=== PATIENT | male | born 1965 | race Caucasian/White ===

== ENCOUNTER → 2022-06-24 08:55 | Outpatient (BNVA) | payer OTHER, SELFPAY | PROVIDERS: PCP Internal Medicine; Visit Provider Anesthesiology | DX: Z13.89 Encounter for screening for other disorder (principal) ==

== ENCOUNTER 2022-09-11 07:35 | Day surgery (SDC) | payer MEDICARE, SELFPAY ==
--- NOTE | 2022-09-10 09:37 | P.CONAN_ITS ---
Documented by User: Awilda Goldman NP 09/10/22 09:39 HPI - Anesthesia Eval Consult details Narrative: 57yo M for Spinal Cord Stimulation Trial Chronic opioids - hydromorphone, fentanyl patch PMFSH Active Problems Active Problems: All Active Problems (Updated 06/24/22 @ 09:43 by Freddy Shanks MD) Obstructive sleep apnea (Acute) Morbid obesity (Acute) Chronic pain syndrome (Acute) Postlaminectomy syndrome of lumbosacral region (Acute) Postlaminectomy syndrome of lumbar region (Acute) Past Medical History Medical History (Updated 09/10/22 @ 09:38 by Awilda Goldman NP) Morbid obesity Obstructive sleep apnea Social History Social History Patient Tobacco Use Status: Former Tobacco user Quit Date: 2016 Use of substances other than those prescribed or required for medical reasons: Yes Substance Use Type Other:: gummies Substance Use Frequency: Daily Are you DNR?: No Advance Directives: No Advance Directives Information Provided: Yes Meds Allergies Allergy/AdvReac Type Severity Reaction Status Date / Time amoxicillin Allergy Unknown Verified 06/24/22 09:26 azithromycin Allergy Unknown Verified 06/24/22 09:26 gabapentin Allergy Unknown Verified 06/24/22 09:26 Latex, Natural Rubber Allergy Unknown Verified 06/24/22 09:26 Home Medications Medication Instructions Recorded Confirmed Last Taken Type albuterol sulfate 90 mcg/actuation 0 mcg inhalation 06/24/22 Unknown History aerosol inhaler allopurinol 100 mg tablet 100 mg PO DAILY 06/24/22 Unknown History baclofen 10 mg tablet 10 mg PO TID 06/24/22 Unknown History clonazepam 1 mg tablet 1 mg PO BID 06/24/22 Unknown History clonidine HCl 0.2 mg tablet 0.2 mg PO BEDTIME 06/24/22 Unknown History divalproex 500 mg tablet,delayed 1,000 mg PO BID 06/24/22 Unknown History release doxazosin 4 mg tablet 4 mg PO DAILY 06/24/22 Unknown History econazole 1 % topical cream 1 appl topical BID 06/24/22 Unknown History fentanyl 75 mcg/hr transdermal 1 patch topical Q3D 06/24/22 Unknown History patch fluticasone propionate 50 spray intranasal 06/24/22 Unknown History mcg/actuation nasal spray,suspension hydromorphone 2 mg tablet mg PO 06/24/22 Unknown History meloxicam 15 mg tablet 15 mg PO DAILY 06/24/22 Unknown History montelukast 10 mg tablet 10 mg PO DAILY 06/24/22 Unknown History nortriptyline 50 mg capsule 50 mg PO BEDTIME 06/24/22 Unknown History omeprazole 40 mg capsule,delayed 40 mg PO BID 06/24/22 Unknown History release risperidone 2 mg tablet 2 mg PO BEDTIME 06/24/22 Unknown History spironolactone 50 mg tablet 50 mg PO DAILY 06/24/22 Unknown History torsemide 20 mg tablet 20 mg PO BID 06/24/22 Unknown History trazodone 150 mg tablet mg PO 06/24/22 Unknown History Exam Exam Date and Time: September 10, 2022 09 Documented by User: Melissa Whyte MD 09/11/22 13:33 [facility] Past Medical History Medical History (Updated 09/10/22 @ 09:38 by Awilda Goldman NP) Morbid obesity Obstructive sleep apnea Family History Family history of problems with anesthesia: No Surgical History History of Problems with Anesthesia: No Social History Social History Patient Tobacco Use Status: Former Tobacco user Quit Date: 2016 Use of substances other than those prescribed or required for medical reasons: Yes Substance Use Type Other:: gummies Substance Use Frequency: Daily Are you DNR?: No Advance Directives: No Advance Directives Information Provided: Yes Meds Allergies Allergy/AdvReac Type Severity Reaction Status Date / Time amoxicillin Allergy Unknown Verified 06/24/22 09:26 azithromycin Allergy Unknown Verified 06/24/22 09:26 gabapentin Allergy Unknown Verified 06/24/22 09:26 Latex, Natural Rubber Allergy Unknown Verified 06/24/22 09:26 Home Medications Medication Instructions Recorded Confirmed Last Taken Type albuterol sulfate 90 mcg/actuation 0 mcg inhalation 06/24/22 Unknown History aerosol inhaler allopurinol 100 mg tablet 100 mg PO DAILY 06/24/22 Unknown History baclofen 10 mg tablet 10 mg PO TID 06/24/22 Unknown History clonazepam 1 mg tablet 1 mg PO BID 06/24/22 Unknown History clonidine HCl 0.2 mg tablet 0.2 mg PO BEDTIME 06/24/22 Unknown History divalproex 500 mg tablet,delayed 1,000 mg PO BID 06/24/22 Unknown History release doxazosin 4 mg tablet 4 mg PO DAILY 06/24/22 Unknown History econazole 1 % topical cream 1 appl topical BID 06/24/22 Unknown History fentanyl 75 mcg/hr transdermal 1 patch topical Q3D 06/24/22 Unknown History patch fluticasone propionate 50 spray intranasal 06/24/22 Unknown History mcg/actuation nasal spray,suspension hydromorphone 2 mg tablet mg PO 06/24/22 Unknown History meloxicam 15 mg tablet 15 mg PO DAILY 06/24/22 Unknown History montelukast 10 mg tablet 10 mg PO DAILY 06/24/22 Unknown History nortriptyline 50 mg capsule 50 mg PO BEDTIME 06/24/22 Unknown History omeprazole 40 mg capsule,delayed 40 mg PO BID 06/24/22 Unknown History release risperidone 2 mg tablet 2 mg PO BEDTIME 06/24/22 Unknown History spironolactone 50 mg tablet 50 mg PO DAILY 06/24/22 Unknown History torsemide 20 mg tablet 20 mg PO BID 06/24/22 Unknown History trazodone 150 mg tablet mg PO 06/24/22 Unknown History Exam Airway Mallampati Class: II TM Dist: >3cm Neck ROM: Full Heart: rrr Lungs: cta Other: pot belly with umbilical hernia not repaired. discussed risk of incarceration due to prone positioning. for permanent suggest carol frame to protect and position properly Assessment and Plan Assessment Anesthesia Assessment: Anesthesia Plan Discussed and Chart Reviewed (due to duper morbid obesity higher risk for positioning injuries discussed and risk accepted by patient . ) Final Anesthetic Review Family History of Problems with Anesthesia: No History of Problems with Anesthesia: No NPO: Yes ASA Class: III Final Preanesthetic Review: No Changes in Pt Med Stat, Meds/Allgs Chart Reviewed, Consent Obtained/Reviewed and Anes Risks/Benef Reviewed Patient Risk: Intermediate Anesthetic Plan Anesthetic Plan: GA Disposition: Standard PACU
[2022-09-11] VITALS (9 sets, daily range): BP systolic 103–142; BP diastolic 58–88; PULSE 97–109; RESP 18–22; TEMP 35.9–36.5; O2SAT 92–95; BMI 42.8
--- NOTE | 2022-09-11 08:29 | MHC.SHP ---
Pre-Procedural Eval Section A Date of Service: 09/11/22 The patient is an INPATIENT: No Changes since office visit: Yes Patient answered all questions The History & Physical has been completed within 30 days and I have reviewed it.: No Section B Chief Complaint: Postlaminectomy syndrome, not elsewhere classified Details of Present Illness: as above Relevant Family History (Specify if Yes): No Relevant Social History: None Present Medications: see Short Stay Collaborative assessment Medical History: Significant History (copd, isabel) History of Previous Operations: Relevant previous surgery/procedure and date(s) (laminectomy H/o) Allergies: Allergies Allergy/AdvReac Type Severity Reaction Status Date / Time amoxicillin Allergy Unknown Verified 06/24/22 09:26 azithromycin Allergy Unknown Verified 06/24/22 09:26 gabapentin Allergy Unknown Verified 06/24/22 09:26 Latex, Natural Rubber Allergy Unknown Verified 06/24/22 09:26 Review of Systems Sugical H&P ROS: Negative: Cardiovascular, Neurological, Psychiatric, Hem-Onc, Allergic/Immunologic, Genitourinary, Integumentary, Endocrine and Eyes/Ears/Nose/Throat and Yes, Specify: Constitution (morbid obesity), Respiratory (ISABEL, COPD), Gastrointestinal (umb. hernia partially reducible) and Musculoskeletal (postlaminectomy syndrome) Exam Surgical H&P Exam: Normal: HEENT, Normal: Heart, Normal: Lungs, Normal: Extremities, Normal: Skin and Normal: Neurological and Significant Findings: Abdomen (greatly enlarged , hernia umbilical partially reducible) Plan Diagnosis/Plan: Unchanged I have reviewed the history and physical and performed a pertinent physical examination on my patient. No changes have occurred unless specified. Time Spent With Patient Time: Total time managing care of this patient today _15___ minutes.
--- NOTE | 2022-09-11 08:33 | P.OP_ITS ---
Operative Note Operative Note Date of Service: 09/11/22 Narrative: Edinson is very pleasant morbidely obese male who came today into the operating room for trial of spinal cord stimulatoNevro for the treatment of postlaminectomy syndrome. Preoperatively patient received ? cefazolin 3 g approximately 10 minutes before the procedure. After obtaining informed consent the patient was brought to the operating room,he was positioned supine on a stretcher ASA m-r applied and GETA was induced. He was transferred on the OR table all pressure points were protected. ?Time-out was performed delineating correct site, side, the nature of the procedure, patient's allergy, preoperative antibiotic if needed.? All operating room staff was participating in OR time-out procedure. Patient's entire back was prepped with Chloraprep twice and draped with full body fenestrated laparoscopy drape.? Sterilely draped C-arm was brought over operating field and square picture of the ? T12-L1 L2 and L3 vertebrae? were demonstrated on the screen. ?Attention FIRST? was concentrated on the T12- L1 epidural interspace.? The location of the projection of the right pedicle center of the L2 vertebra was found on the skin using C-arm.? This location was injected with mixture of lidocaine 2% and Marcaine 0.5% - 5 cc.? After that 11 blade was used to make a kobe on the skin.? 10 cm 14 gauge? introducer epidural needle was inserted through the kobe and advanced to T12-L1 epidural interspace.? The advancement of the needle was performed on anterior posterior and lateral views. Loss of resistance to air? technique were used to locate epidural space., epidural lead was inserted through the needle and it was advanced to ? top of T8 vertebra projection slightly left to the midline. ? . After that? the location of the projection of the LEFT pedicle center of the? L2 vertebra was found on the skin using C-arm.? This location was injected with mixture of lidocaine 2% and Marcaine 0.5% 5 cc.? After that 11 blade was used to make a kobe on the skin.? 10 cm 14 gauge introducer epidural needle was inserted through the kobe and advanced to T12-L1 epidural interspace.? The advancement of the needle was performed on anterior posterior and lateral views.? Guitar wire and loss of resistance to air technique were used to locate epidural space.? When guitar wire was spread in the epidural fashion, epidural lead was inserted through the needle and advanced to the middle of? T8 epidural interspace sl ightly?right to the existing electrode. Impedance was checked and was satisfactory . .? Posterior lead placement was verified by lateral x-ray. The needles were withdrawn, the stylette wires were removed from the epidural leads.? The anchoring devices were dislodged on the leads and advanced to the level of the skin.? The anchoring devices were sutured with two 0-0? Silk sutures per each anchor to the skin of the patient. The central fixation screw of each anchor was rotated until three clicks were heard. The leads were connected to testing device.? Bacitracin ointment was applied to the entrance point of bilateral wires.? Sterile dressing was applied to the patient's back.? The testing device was also taped to the patient's back.? the patient tolerated procedure well he was awaken and taken outside of the operating room to recovery room. he recovered uneventfully
[2022-09-11] MEDS: Famotidine/PF 20 MG/2 ML VIAL IVPUSH (08:35)
[2022-09-11] MEDS: Metoclopramide HCl 10 MG/2 ML VIAL IVPUSH (08:38)
--- NOTE | 2022-09-11 09:06 | PC.NURSE ---
LS clear but 02 around 93-94%. Per patient, its usually around 95 but its probably low because I did alot of walking. Severe heartburn reported, medicated per MAR. Tremors noted in hands, per patient its always like that. Grossly rounded belly noted w/ umbilical hernia present. Patient states Sarah had it looked at before and they said they aren't going to fix it because the risks aren't worth it. Anesthesia notified & Dr Shanks aware. Patient assessed at beside by both surgeon & anesthesia, risks for hernia incarceration explained to patient, patient and providers have elected for case to proceed.
--- NOTE | 2022-09-11 09:14 | PC.NURSE ---
NO MRSA swab to be done per Dr Shanks. Order cancelled.
--- NOTE | 2022-09-11 10:48 | PM.OP ---
Brief Operative Note Date of Service: 09/11/22 Pre-op diagnosis: postlaminectomy syndrome Post-op diagnosis: same Procedure: trial of Nevro SCS Implants: none permanent Surgeon: Freddy Shanks MD Anesthesia: GETA Was an Computational Geneticist used for this Procedure?: No Estimated blood loss (mL): 3 Condition: stable Disposition: PACU
== END 2022-09-11 12:30 | disposition home or self-care (01) ==
PROVIDERS: PCP Internal Medicine; Visit Provider Anesthesiology
PROC: (CPT 63650; principal; 2022-09-11 09:10)
DX: M96.1 Postlaminectomy syndrome, not elsewhere classified (principal); G89.4 Chronic pain syndrome; M54.50 Low back pain, unspecified; E66.01 Morbid (severe) obesity due to excess calories; Z68.41 Body mass index [BMI] 40.0-44.9, adult; G40.909 Epilepsy, unspecified, not intractable, without status epilepticus; Z86.73 Personal history of transient ischemic attack (TIA), and cerebral infarction without residual deficits; J44.9 Chronic obstructive pulmonary disease, unspecified; G47.33 Obstructive sleep apnea (adult) (pediatric); Z79.51 Long term (current) use of inhaled steroids; Z79.891 Long term (current) use of opiate analgesic; Z99.89 Dependence on other enabling machines and devices; Z79.899 Other long term (current) drug therapy; Z88.1 Allergy status to other antibiotic agents; Z88.8 Allergy status to other drugs, medicaments and biological substances; Z91.040 Latex allergy status; Z87.891 Personal history of nicotine dependence
CPT/HCPCS: 63650 ×2; C1713; C1897; J0330; J0690; J1100; J2250; J2405; J2765; J2795; J3010

== ENCOUNTER → 2022-09-17 08:49 | Outpatient (BNVA) | payer OTHER, SELFPAY | PROVIDERS: PCP Internal Medicine; Visit Provider Anesthesiology ==

== ENCOUNTER 2022-09-28 13:37 | Outpatient (AMB) | payer MEDICARE, SELFPAY ==
--- NOTE | 2022-09-28 13:40 | MHC.OFFVIS ---
Intake Vital Signs 09/28/22 13:40 Height 5 ft 9 in Intake Visit Reasons: umbilical hernia (big) Intake Note: This patient presents for an assessment for an umbilical hernia. Patient c/o; umbilical hernia, bulge, denies problems with bowel movements. Pricing Consultant Required: No Accompanied by: Other Relationship Allergies amoxicillin Allergy (Verified 09/28/22 13:45) Unknown azithromycin Allergy (Verified 09/28/22 13:45) Unknown gabapentin Allergy (Verified 09/28/22 13:45) Unknown Latex, Natural Rubber Allergy (Verified 09/28/22 13:45) Unknown Medication List - Last Reviewed 09/28/22 by ENEDINA Coughlin albuterol sulfate 90 mcg/actuation 0 mcg inhalation allopurinol 100 mg PO DAILY baclofen 10 mg PO TID calcium carbonate-vitamin D3 600 mg-10 mcg (400 unit) (Calcium 600 with Vitamin D3) tabs PO clindamycin HCl 600 mg (2 x 300 mg) PO Q8H 7 days clonazepam 1 mg PO BID clonidine HCl 0.2 mg PO BEDTIME divalproex 1,000 mg PO BID doxazosin 4 mg PO DAILY econazole 1% 1 appl topical BID fentanyl 75 mcg/hr 1 patch topical Q3D ferrous sulfate 325 mg PO DAILY fluticasone propionate 50 mcg/actuation sprays intranasal hydromorphone mg PO lisinopril 20 mg PO DAILY loratadine 10 mg PO DAILY meloxicam 15 mg PO DAILY montelukast 10 mg PO DAILY multivitamin 1 tab PO DAILY nortriptyline 50 mg PO BEDTIME omeprazole 40 mg PO BID risperidone 2 mg PO BEDTIME spironolactone 50 mg PO DAILY torsemide 20 mg PO BID trazodone mg PO umeclidinium-vilanterol 62.5-25 mcg/actuation (Anoro Ellipta) 1 ea inhalation DAILY zinc gluconate 50 mg PO DAILY HPI umbilical hernia (big) HPI Details [age] year old female referred for an umbilical hernia. He says that he has noticed this bulge on his umbilicus for over 10 years. He thinks that this may have increased in size over time. He denies significant pain. He had recently had sacral nerve stimulation testing to be supine in the OR for a long period of time and has had discomfort. He is supposed to have a permanent implant placed for sacral nerve stimulation and had been recommended by his pain to have this hernia repaired prior to that procedure. He does notice some irritation on the skin now. He denies GI complaints. He is morbidly obese. He has a known history of COPD from being an ex-smoker. He has chronic back pain and has difficulty walking. He currently uses crutches for ambulation. [facility] Medical History (Updated 09/28/22 @ 14:13 by Altaf Brown MD) COPD (chronic obstructive pulmonary disease) History of smoking Morbid obesity Obstructive sleep apnea Umbilical hernia Surgical History History of ear surgery History of spinal fusion Social History Patient Tobacco Use Status: Former Tobacco user Quit Date: 2016 Review of Systems Const Denies chills and Denies fever(s) Card Denies chest pain, Denies dyspnea and Reports dyspnea on exertion Resp Denies cough, Denies dyspnea and Reports dyspnea on exertion GI Denies hematochezia and Denies change in bowel habits Denies hematuria and Denies difficulty urinating Musc Reports abnormal gait, Reports back pain and Reports limited range of motion Neuro Reports abnormal gait, Denies focal weakness and Denies convulsions Psych Denies depression and Denies mood swings Physical Exam Const Other: Morbidly obese, uses crutches to ambulate, appears unsteady General: comfortable and no acute distress Orientation/consciousness: patient oriented x3 Neck Neck: Yes no lymphadenopathy Resp Auscultation: clear to auscultation bilaterally Cardio Rhythm: regular rhythm GI Other: Very protuberant abdomen, large umbilical hernia, about 4.5 cm in diameter, partially reducible, some skin changes, not tender Palpation (GI): Soft to palpation, nontender and no guarding Neuro General: patient oriented x3 Assessment & Plan Assessment & Plan (1) Umbilical hernia: Code(s): K42.9 - Umbilical hernia without obstruction or gangrene Plan: He has a large umbilical hernia as described above. He has some skin changes some irritation on this. He had been recommended by his pain doctor to undergo repair. I reviewed with him the technique of repair of the umbilical hernia with possible mesh. I explained the risks including but not limited to bleeding, infections, recurrence, bowel injury, poor healing, as well as the benefits and alternatives. He understands that he does have medical comorbidities and his perioperative risks may be a little higher than average. He wants to proceed with repair. His was with him during the visit. I also explained to him what to expect postoperatively. He will be set up for preadmission testing as well. Medications: New umeclidinium-vilanterol 62.5-25 mcg/actuation (Anoro Ellipta) 1 ea inhalation DAILY multivitamin 1 tab PO DAILY calcium carbonate-vitamin D3 600 mg-10 mcg (400 unit) (Calcium 600 with Vitamin D3) tabs PO lisinopril 20 mg PO DAILY loratadine 10 mg PO DAILY ferrous sulfate 325 mg PO DAILY zinc gluconate 50 mg PO DAILY Coding Level of Care Code New Pt Level 3 (48439) Diagnoses Umbilical hernia K42.9
== END 2022-09-28 14:16 | disposition home or self-care (01) ==
PROVIDERS: PCP Internal Medicine; Visit Provider Surgery
DX: K42.9 Umbilical hernia without obstruction or gangrene (principal)
CPT/HCPCS: 99203

== ENCOUNTER → 2022-09-28 13:37 | Outpatient (BNVA) | payer MEDICARE, SELFPAY | PROVIDERS: PCP Internal Medicine; Visit Provider Surgery | DX: K42.9 Umbilical hernia without obstruction or gangrene (principal) | CPT/HCPCS: 99202 ==

== ENCOUNTER 2022-10-23 07:34 | Day surgery (SDC) | payer MEDICARE, SELFPAY ==
[2022-10-15 14:24] VITALS: BMI 40.6
--- NOTE | 2022-10-22 08:52 | HO.ANESPROP2 ---
Documented by User: Awilda Goldman NP 10/22/22 08:53 HPI - Anesthesia Eval Consult details Narrative: 57yo M for large Hernia Repair Umbilical,poss mesh s/p spinal stim trial 09/2022 with GA-ETT 8 Chronic opioids - hydromorphone, fentanyl patch PMFSH Active Problems Active Problems: All Active Problems Postlaminectomy syndrome of lumbar region (Acute) Postlaminectomy syndrome of lumbosacral region (Acute) Chronic pain syndrome (Acute) Umbilical hernia (Acute) COPD (chronic obstructive pulmonary disease) (Acute) History of smoking (Acute) Past Medical History Medical History Anxiety Asthma Back pain COPD (chronic obstructive pulmonary disease) Depression GERD (gastroesophageal reflux disease) H/O idiopathic seizure History of smoking HTN (hypertension) Morbid obesity Obstructive sleep apnea Oxygen dependent Spondylosis of lumbar spine TIA (transient ischemic attack) Umbilical hernia Family History Family history of problems with anesthesia: No Surgical History Surgical History History of ear surgery History of spinal fusion History of Problems with Anesthesia: No Social History Social History Are you a primary healthcare consultant to a significant other at home: No Do you presently have visiting nurse or other home services: No Patient Tobacco Use Status: Former Tobacco user Quit Date: 2015 Substance Use Type Other:: edible Substance Use Frequency: Daily Have you been hit, kicked, punched, or otherwise hurt by someone within the past year? If so, by whom?: No Are you DNR?: No Advance Directives: No Advance Directives Information Provided: Yes Advance Directives on File: No Recently lost weight without trying: No Nutrition Risks: No Nutritional Risk Poor oral hygiene: Yes (missing teeth) Meds Allergies Allergy/AdvReac Type Severity Reaction Status Date / Time amoxicillin Allergy Unknown Verified 09/28/22 13:45 azithromycin Allergy Unknown Verified 09/28/22 13:45 gabapentin Allergy Unknown Verified 09/28/22 13:45 Latex, Natural Rubber Allergy Unknown Verified 09/28/22 13:45 Home Medications Medication Instructions Recorded Confirmed Last Taken Type albuterol sulfate 90 mcg/actuation 2 puff inhalation Q6-8H PRN 06/24/22 10/15/22 Unknown History aerosol inhaler Shortness Of Breath Or Wheezing allopurinol 100 mg tablet 100 mg PO BEDTIME 06/24/22 10/15/22 Unknown History baclofen 10 mg tablet 10 mg PO TID 06/24/22 10/15/22 10/23/22 History clonazepam 1 mg tablet 1 mg PO BID 06/24/22 10/15/22 Unknown History divalproex 500 mg tablet,delayed 1,000 mg PO BID 06/24/22 10/15/22 10/23/22 History release doxazosin 4 mg tablet 4 mg PO BEDTIME 06/24/22 10/15/22 Unknown History fentanyl 75 mcg/hr transdermal 1 patch topical Q3D 06/24/22 10/15/22 Unknown History patch fluticasone propionate 50 2 spray intranasal DAILY 06/24/22 10/15/22 Unknown History mcg/actuation nasal spray,suspension hydromorphone 2 mg tablet 2 mg PO BID 06/24/22 10/15/22 Unknown History meloxicam 15 mg tablet 15 mg PO DAILY 06/24/22 10/15/22 Unknown History montelukast 10 mg tablet 10 mg PO BEDTIME 06/24/22 10/15/22 Unknown History nortriptyline 50 mg capsule 50 mg PO BEDTIME 06/24/22 10/15/22 Unknown History omeprazole 40 mg capsule,delayed 40 mg PO BID 06/24/22 10/15/22 10/23/22 History release risperidone 2 mg tablet 2 mg PO BEDTIME 06/24/22 10/15/22 Unknown History spironolactone 50 mg tablet 50 mg PO QNOON 06/24/22 10/15/22 Unknown History torsemide 20 mg tablet 20 mg PO BID 06/24/22 10/15/22 Unknown History trazodone 150 mg tablet 150 mg PO BEDTIME 06/24/22 10/15/22 Unknown History calcium carbonate 600 mg-vitamin 1 tab PO DAILY 09/28/22 10/15/22 Unknown History D3 10 mcg (400 unit) chewable tablet (Calcium 600 with Vitamin D3) ferrous sulfate 325 mg (65 mg 325 mg PO DAILY 09/28/22 10/15/22 Unknown History iron) tablet lisinopril 20 mg tablet 20 mg PO QNOON 09/28/22 10/15/22 Unknown History loratadine 10 mg tablet 10 mg PO BEDTIME 09/28/22 10/15/22 Unknown History multivitamin 1 tab PO DAILY 09/28/22 10/15/22 Unknown History umeclidinium 62.5 mcg-vilanterol 1 ea inhalation DAILY 09/28/22 Unknown History 25 mcg/actuation powdr for inhalation (Anoro Ellipta) zinc gluconate 50 mg tablet 50 mg PO BEDTIME 09/28/22 10/15/22 Unknown History allopurinol 300 mg tablet 300 mg PO DAILY 10/15/22 10/15/22 10/23/22 History clonidine HCl 0.1 mg tablet 0.2 mg PO BID 10/15/22 10/15/22 10/23/22 History ipratropium 0.5 mg-albuterol 3 mg 3 ml inhalation DAILY 10/15/22 10/15/22 Unknown History (2.5 mg base)/3 mL nebulization soln tumeric 100 mg-hayes 150 mg-olive 1 cap PO DAILY 10/15/22 10/15/22 Unknown History 50 mg-oreg 150 mg-caprylate capsule vitamin C 45 mg-zinc citrate 3.75 1 tab PO DAILY 10/15/22 10/15/22 Unknown History mg-elderberry 50 mg chewable tablet (Musicane) Exam Exam Date and Time: October 22, 2022 0852 Height,Weight and Vital Signs: Height 5 ft 10 in Weight 128.367 kg Assessment and Plan Assessment Anesthesia Assessment: Chart Reviewed Final Anesthetic Review Family History of Problems with Anesthesia: No History of Problems with Anesthesia: No Documented by User: Nilsa Velazquez MD 10/23/22 09:51 [facility] Past Medical History Medical History Anxiety Asthma Back pain COPD (chronic obstructive pulmonary disease) Depression GERD (gastroesophageal reflux disease) H/O idiopathic seizure History of smoking HTN (hypertension) Morbid obesity Obstructive sleep apnea Oxygen dependent Spondylosis of lumbar spine TIA (transient ischemic attack) Umbilical hernia Surgical History Surgical History History of ear surgery History of spinal fusion Social History Social History Are you a primary healthcare consultant to a significant other at home: No Do you presently have visiting nurse or other home services: No Patient Tobacco Use Status: Former Tobacco user Quit Date: 2015 Substance Use Type Other:: edible Substance Use Frequency: Daily Have you been hit, kicked, punched, or otherwise hurt by someone within the past year? If so, by whom?: No Are you DNR?: No Advance Directives: No Advance Directives Information Provided: Yes Advance Directives on File: No Recently lost weight without trying: No Nutrition Risks: No Nutritional Risk Poor oral hygiene: Yes (missing teeth) Meds Allergies Allergy/AdvReac Type Severity Reaction Status Date / Time amoxicillin Allergy Unknown Verified 09/28/22 13:45 azithromycin Allergy Unknown Verified 09/28/22 13:45 gabapentin Allergy Unknown Verified 09/28/22 13:45 Latex, Natural Rubber Allergy Unknown Verified 09/28/22 13:45 Home Medications Medication Instructions Recorded Confirmed Last Taken Type albuterol sulfate 90 mcg/actuation 2 puff inhalation Q6-8H PRN 06/24/22 10/15/22 Unknown History aerosol inhaler Shortness Of Breath Or Wheezing allopurinol 100 mg tablet 100 mg PO BEDTIME 06/24/22 10/15/22 Unknown History baclofen 10 mg tablet 10 mg PO TID 06/24/22 10/15/22 10/23/22 History clonazepam 1 mg tablet 1 mg PO BID 06/24/22 10/15/22 Unknown History divalproex 500 mg tablet,delayed 1,000 mg PO BID 06/24/22 10/15/22 10/23/22 History release doxazosin 4 mg tablet 4 mg PO BEDTIME 06/24/22 10/15/22 Unknown History fentanyl 75 mcg/hr transdermal 1 patch topical Q3D 06/24/22 10/15/22 Unknown History patch fluticasone propionate 50 2 spray intranasal DAILY 06/24/22 10/15/22 Unknown History mcg/actuation nasal spray,suspension hydromorphone 2 mg tablet 2 mg PO BID 06/24/22 10/15/22 Unknown History meloxicam 15 mg tablet 15 mg PO DAILY 06/24/22 10/15/22 Unknown History montelukast 10 mg tablet 10 mg PO BEDTIME 06/24/22 10/15/22 Unknown History nortriptyline 50 mg capsule 50 mg PO BEDTIME 06/24/22 10/15/22 Unknown History omeprazole 40 mg capsule,delayed 40 mg PO BID 06/24/22 10/15/22 10/23/22 History release risperidone 2 mg tablet 2 mg PO BEDTIME 06/24/22 10/15/22 Unknown History spironolactone 50 mg tablet 50 mg PO QNOON 06/24/22 10/15/22 Unknown History torsemide 20 mg tablet 20 mg PO BID 06/24/22 10/15/22 Unknown History trazodone 150 mg tablet 150 mg PO BEDTIME 06/24/22 10/15/22 Unknown History calcium carbonate 600 mg-vitamin 1 tab PO DAILY 09/28/22 10/15/22 Unknown History D3 10 mcg (400 unit) chewable tablet (Calcium 600 with Vitamin D3) ferrous sulfate 325 mg (65 mg 325 mg PO DAILY 09/28/22 10/15/22 Unknown History iron) tablet lisinopril 20 mg tablet 20 mg PO QNOON 09/28/22 10/15/22 Unknown History loratadine 10 mg tablet 10 mg PO BEDTIME 09/28/22 10/15/22 Unknown History multivitamin 1 tab PO DAILY 09/28/22 10/15/22 Unknown History umeclidinium 62.5 mcg-vilanterol 1 ea inhalation DAILY 09/28/22 Unknown History 25 mcg/actuation powdr for inhalation (Anoro Ellipta) zinc gluconate 50 mg tablet 50 mg PO BEDTIME 09/28/22 10/15/22 Unknown History allopurinol 300 mg tablet 300 mg PO DAILY 10/15/22 10/15/22 10/23/22 History clonidine HCl 0.1 mg tablet 0.2 mg PO BID 10/15/22 10/15/22 10/23/22 History ipratropium 0.5 mg-albuterol 3 mg 3 ml inhalation DAILY 10/15/22 10/15/22 Unknown History (2.5 mg base)/3 mL nebulization soln tumeric 100 mg-hayes 150 mg-olive 1 cap PO DAILY 10/15/22 10/15/22 Unknown History 50 mg-oreg 150 mg-caprylate capsule vitamin C 45 mg-zinc citrate 3.75 1 tab PO DAILY 10/15/22 10/15/22 Unknown History mg-elderberry 50 mg chewable tablet (Elderberry [employer]) Exam Airway Mallampati Class: III (poor dentition) TM Dist: >3cm Neck ROM: Limited Loose/Missing/Broken Teeth: Yes, Upper and Lower Heart: RRR Lungs: CTA BUT DISTANT Assessment and Plan Assessment Anesthesia Assessment: Anesthesia Plan Discussed Final Anesthetic Review NPO: Yes ASA Class: III Final Preanesthetic Review: Meds/Allgs Chart Reviewed, Consent Obtained/Reviewed and Anes Risks/Benef Reviewed Patient Risk: Intermediate Procedure Risk: Low Anesthetic Plan Anesthetic Plan: GA Disposition: Standard PACU
[2022-10-23] VITALS (9 sets, daily range): BP systolic 119–137; BP diastolic 69–98; PULSE 98–112; RESP 16–22; TEMP 36.1–36.4; O2SAT 93–96
[2022-10-23] MEDS: Lactated Ringers 1,000 ML 100 ML IVCONT (08:46)
--- NOTE | 2022-10-23 08:48 | MHC.SHP ---
Pre-Procedural Eval Section A Date of Service: 10/23/22 The patient is an INPATIENT: No Changes since office visit: No Cold of Flu in the past 2 weeks, No New Medical Problems, No Changes in Medication and No Patient answered all questions The History & Physical has been completed within 30 days and I have reviewed it.: Yes Section B Chief Complaint: Umbilical hernia without obstruction or gangrene Allergies: Allergies Allergy/AdvReac Type Severity Reaction Status Date / Time amoxicillin Allergy Unknown Verified 09/28/22 13:45 azithromycin Allergy Unknown Verified 09/28/22 13:45 gabapentin Allergy Unknown Verified 09/28/22 13:45 Latex, Natural Rubber Allergy Unknown Verified 09/28/22 13:45 Plan I have reviewed the history and physical and performed a pertinent physical examination on my patient. No changes have occurred unless specified. Time Spent With Patient Time: Total time managing care of this patient today ____ minutes.
--- NOTE | 2022-10-23 09:58 | P.OP_ITS ---
Operative Note Operative Note Date of Service: 10/23/22 Narrative: Preop diagnosis: Umbilical hernia Postop diagnosis: Umbilical hernia with chronically incarcerated omentum Procedure: Repair of umbilical hernia with Ventralex mesh, partial omentectomy of incarcerated omentum Surgeon: Altaf Brown MD public health assistant: BEV Obrien The patient is a 57-year-old male, morbidly obese, with an umbilical hernia causing discomfort. He wanted to proceed with repair. To the technique of the planned procedure as well as the risks, benefits, and alternatives He was brought to the operating room and placed supine under general anesthesia via laryngeal mask airway. The abdomen was prepped and draped in the usual sterile fashion. A surgical time-out was done. The patient received cefazolin 2 g IV preoperatively. The hernia was seen on the umbilicus and this was appeared to be chronically incarcerated. I in tolerated the planned line of incision with lidocaine 1%. I made a supraumbilical transverse curvilinear incision using blade 15. This carried down through the full-thickness of the skin and the umbilicus was lifted off of has a flap. We dissected the incarcerated contents of the hernia using Metzenbaum scissors and electrocautery. This was dissected all way down to the fascial defect. There was a lot of omentum that was incarcerated. I was able to separate this entire hernia contents from the fascial edge with rectal lysis of adhesions using electrocautery. I then attempted to reduce the hernia but there was a lot of omentum so I had to do partial omentectomy with serial clamping and ligation of incarcerated omentum using interrupted 2-0 ties. The transected omentum was sent as a specimen I was therefore able to reduce all the omental contents. The fascial defect was well-defined. The underside was free of bowel or adhesions. The fascial defect was about 2.5 cm in diameter. I used a medium-sized Ventralex mesh. This was position underneath the fascial defect and flattened. I secured this to the fascial edge using the Prolene straps on each side with Prolene 2 sutures I then trimmed the Prolene straps flush on the fascial level. Closed the fascial defect with a [id number] Maxon 1 stitch. The umbilicus was tacked down to the fascia using a Polysorb 3-0 tie to recreate the dimple . I infiltrated the area with Marcaine 0.5% for postop ADRIAN. Dressings were applied. The procedure was completed. The patient tolerated procedure well. There were no immediate complications. Initial and final counts sponges and instruments were correct. Estimated blood loss was about 5 cc The patient was extubated without difficulty and transferred to the recovery room with stable vital signs.
== END 2022-10-23 12:10 | disposition home or self-care (01) ==
PROVIDERS: PCP Internal Medicine; Visit Provider Surgery
PROC: (CPT 49594; principal; 2022-10-23 09:30)
DX: K42.0 Umbilical hernia with obstruction, without gangrene (principal); I10 Essential (primary) hypertension; J44.9 Chronic obstructive pulmonary disease, unspecified; J45.40 Moderate persistent asthma, uncomplicated; G47.33 Obstructive sleep apnea (adult) (pediatric); G89.4 Chronic pain syndrome; M54.9 Dorsalgia, unspecified; R26.2 Difficulty in walking, not elsewhere classified; E66.01 Morbid (severe) obesity due to excess calories; R21 Rash and other nonspecific skin eruption; Z79.51 Long term (current) use of inhaled steroids; Z99.81 Dependence on supplemental oxygen; Z79.899 Other long term (current) drug therapy; Z88.1 Allergy status to other antibiotic agents; Z88.8 Allergy status to other drugs, medicaments and biological substances; Z91.040 Latex allergy status; Z86.73 Personal history of transient ischemic attack (TIA), and cerebral infarction without residual deficits; Z87.891 Personal history of nicotine dependence
CPT/HCPCS: 49594; 88304; C1781; J0131; J0690; J1100; J1885; J2250; J2405; J2795; J3010

== ENCOUNTER → 2022-10-23 07:34 | Outpatient (BNV) | payer MEDICARE, SELFPAY | PROVIDERS: PCP Internal Medicine; Visit Provider Surgery | DX: K42.0 Umbilical hernia with obstruction, without gangrene (principal) | CPT/HCPCS: 49592 ==

== ENCOUNTER 2022-11-05 10:21 | Outpatient (AMB) | payer MEDICARE, SELFPAY ==
--- NOTE | 2022-11-05 10:29 | MHC.OFFVIS ---
Intake Intake Visit Reasons: S/P Lg. umbilical hernia repair Intake Note: This patient presents for a post-op assessment status post repair of large umbilical hernia. Patient reports no complaints or concerns at this time pertaining to surgery. Water/Wastewater Project Manager Required: No Accompanied by: Self / Same As Patient Allergies amoxicillin Allergy (Verified 11/05/22 10:35) Unknown azithromycin Allergy (Verified 11/05/22 10:35) Unknown gabapentin Allergy (Verified 11/05/22 10:35) Unknown Latex, Natural Rubber Allergy (Verified 11/05/22 10:35) Unknown HPI S/P Lg. umbilical hernia repair HPI Details He underwent repair of a large umbilical hernia with mesh last 10/23/2022. He tolerated procedure well. The incarcerated omentum was removed as well. He denies any significant complaints at this time. [facility] Medical History Anxiety Asthma Back pain COPD (chronic obstructive pulmonary disease) Depression GERD (gastroesophageal reflux disease) H/O idiopathic seizure History of smoking HTN (hypertension) Morbid obesity Obstructive sleep apnea Oxygen dependent Spondylosis of lumbar spine TIA (transient ischemic attack) Umbilical hernia Surgical History History of ear surgery History of spinal fusion Social History Are you a primary neonatal critical care nurse to a significant other at home: No Do you presently have visiting nurse or other home services: No Patient Tobacco Use Status: Former Tobacco user Quit Date: 2015 Review of Systems Const Denies chills and Denies fever(s) Card Denies chest pain and Denies dyspnea Resp Denies cough and Denies dyspnea Physical Exam Const Other: Morbidly obese General: comfortable and no acute distress Resp Effort & Inspection: normal respiratory effort GI Other: Incision looks clean and dry, healing well, no evidence of recurrence; dry scab on the incision, no cellulitis Has large pannus Palpation (GI): Soft to palpation, not firm and nontender Assessment & Plan Assessment & Plan (1) Umbilical hernia: Code(s): K42.9 - Umbilical hernia without obstruction or gangrene Plan: Status post repair with mesh. His incision is healing well. There is no evidence of any infection. The repair site is intact I advised him to avoid any lifting more than 20 lb for at least 2 more weeks. He can otherwise follow up on a p.r.n. basis. He was also advised on the benefits of weight loss. Coding Level of Care Code Global (49301) Diagnoses Umbilical hernia K42.9
== END 2022-11-05 10:38 | disposition home or self-care (01) ==
PROVIDERS: PCP Internal Medicine; Visit Provider Surgery
DX: K42.9 Umbilical hernia without obstruction or gangrene (principal)
CPT/HCPCS: 99024

== ENCOUNTER → 2022-11-05 10:21 | Outpatient (BNVA) | payer MEDICARE, SELFPAY | PROVIDERS: PCP Internal Medicine; Visit Provider Surgery ==

== ENCOUNTER 2023-01-20 09:33 | Outpatient (AMB) | payer MEDICARE, SELFPAY ==
--- NOTE | 2023-01-20 09:42 | A.OFFVIS_ITS ---
Intake Vital Signs 01/20/23 09:50 Height 5 ft 9 in Weight 279 lb BMI 41.2 BP 128/83 Blood Pressure Location Lt brachial Position Sitting Respiration 18 Pulse 110 H Pulse Source Pulse Oximeter Pulse Oximetry (%) 94 Oxygen Delivery Method Room Air Intake Visit Reasons: PROCEDURE DISCUSSION/LMOVM Allergies amoxicillin Allergy (Verified 01/20/23 09:52) Unknown azithromycin Allergy (Verified 01/20/23 09:52) Unknown gabapentin Allergy (Verified 01/20/23 09:52) Unknown Latex, Natural Rubber Allergy (Verified 01/20/23 09:52) Unknown HPI HPI Comments History of Present Illness Details Edinson is back in my office after the treatment with Dr. Brown who was working on fixing his umbilical hernia. Patient reports that Dr. Brown did very good job. He is very happy with the service he received with Dr. Brown. He is asking me about that Nevro spinal cord stimulator. On a trial he had only 25-30% pain improvement. I told him that this is not enough for me to perform implantation of Nevro SCS. His options would be to try another SCS like [employer] which I think would be less appropriate and not giving us better results than Nevro SCS. Another option would be to start patient on intrathecal pain pump. The conversation was very prolonged and detailed after my explanation of intrathecal pain pump. He is on very high doses of the opioid he is on 75 micro g of fentanyl per hour via fentanyl patch. Therefore at this moment fentanyl or other intrathecal opioids relatively contraindicated for this patient. However we can try bupivacaine, clonidine, baclofen. We also can try Prialt although patient says that he cannot afforded it.. Brochure of pain pump was given to the patient. He is working with his primary care physician to reduce and possibly eliminate his fentanyl transdermal. If he will stop his transdermal fentanyl in 8-12 weeks we can perform implantation of the opioid pump as well. Results of trial- of Nevro SCS. He reports only 25 to 30% pain relieve during the trial. Prior: complains on lower back pain with radiation into the bilateral lower extremities on the lateral and posterior surfaces of bilateral lower extremities to the level of the mid lower leg and sheen bilaterally.? He reports that this pain started many years ago he was a subject of multiple procedures as below.? He reports his pain 8 to 910.? He reports swelling of bilateral lower extremities.? He is on permanent disability.? he was subject of multiple sessions of physical therapy in 2009 he reports that it caused him excruciating pain he does not want to do physical therapy.chiropractic manipulations done recently made his condition worse.?he tried acupuncture and he reported ?it hurt like hell ?and he refused to go for any attempt of acupuncture.? He is currently taking cannabis edibles and he tried 10s unit in the past and it was not effective.? He was a subject of surgery performed on him by Dr. Garces where the patient received posterior L4-S1 fusion with cages and screws and rods.? The surgery improved his mobility and muscular strength of bilateral lower extremities however his pain remain the same.? He was on exuberant doses of the opioid medications in the past his primary care physician now is trying to taper his medications down.? He is on 5 mg of Dilaudid a day and 75 micro g of fentanyl patch every 3 days.? His total morphine equivalency is 200 mg a day and he reports pain 8 to 9/10. In the past he received multiple injections by many pain practitioners in the area.? He received therapeutic epidural steroid injections ,facet nerve blocks and facet joint injections as well as sacroiliac joint injections.? The issue of sacroiliac joint fusion was entertain at once. [facility] Medical History Anxiety Asthma Back pain COPD (chronic obstructive pulmonary disease) Depression GERD (gastroesophageal reflux disease) H/O idiopathic seizure History of smoking HTN (hypertension) Morbid obesity Obstructive sleep apnea Oxygen dependent Spondylosis of lumbar spine TIA (transient ischemic attack) Umbilical hernia Surgical History History of ear surgery History of spinal fusion Social History Are you a primary wound care coordinator to a significant other at home: No Do you presently have visiting nurse or other home services: No Patient Tobacco Use Status: Former Tobacco user Quit Date: 2015 Review of Systems Const All systems reviewed & are unremarkable except as noted in HPI and below ENT Reports Normal hearing present Neuro Reports Normal hearing present, Denies Abnormal speech present, Denies confusion and Denies Sensory deficit (Neuro) Psych Denies confusion Physical Exam Vital Signs: Last Vital Signs Pulse 110 H 01/20/23 09:50 Resp 18 01/20/23 09:50 BP 128/83 01/20/23 09:50 Pulse Ox 94 01/20/23 09:50 Oxygen Delivery Method Room Air 01/20/23 09:50 BMI result Body Mass Index 41.2 Const General: No confusion Nutritional Appearance: obese morbidly obese Orientation/consciousness: No confusion Eyes General: appearance normal, both eyes and all related structures Pupils: Equal, round and reactive pupils present EOM: EOMs intact bilaterally Neck Neck: Yes full ROM Chest Chest palpation & inspection: normal inspection of the chest Resp Effort & Inspection: normal respiratory effort, able to speak in complete sentences, normal respiratory pattern, no audible wheezes and no cough Cardio Jugular venous distension: no JVD GI Inspection: Yes normal to inspection Back/Spine/Pelvis Other: Able to stand on bilateral tiptoes and bilateral heels. Reports minimal numbness in bilateral lower extremities below the level of the mid lower legs denies burning or tingling sensations. Denies pelvic organ dysfunctions. Able to flex himself forward about 60 degrees unable to flex himself backwards reports severe pain. Neuro General: No confusion Cranial nerves: Yes Equal, round and reactive pupils present and Yes Normal hearing present Speech: No Abnormal speech present Gait exam (Neuro): Normal gait present Motor exam (neuro): 5/5 motor strength present throughout Sensory Exam: No Sensory deficit (Neuro) Extrem General: No pedal edema Psych Speech and movement: Normal speech and movement present Affect: normal affect Attitude: cooperative Thought process: Normal thought process present Thought content: Normal thought content present Insight: Good insight present (Psych) Judgement: Good judgement present (Psych) Assessment & Plan Assessment & Plan (1) Postlaminectomy syndrome of lumbar region: Code(s): M96.1 - Postlaminectomy syndrome, not elsewhere classified (2) Postlaminectomy syndrome of lumbosacral region: Code(s): M96.1 - Postlaminectomy syndrome, not elsewhere classified (3) Chronic pain syndrome: Code(s): G89.4 - Chronic pain syndrome (4) Morbid obesity: Code(s): E66.01 - Morbid (severe) obesity due to excess calories (5) Obstructive sleep apnea: Comment: no cpap Code(s): G47.33 - Obstructive sleep apnea (adult) (pediatric) Plan Patient finished his treatment with general surgeon Dr. Brown and now he reports that he is ready to consider spinal cord stimulator. Nevro SCS trial resulted in 25 to 30% pain improvement only after the procedure. He is not an ideal candidate for Nevro SCS. I do not believe he is a good candidate for SCS implant. I DDD was offered. The patient nevertheless is less than ideal candidate. While he is on fentanyl we can try non opioid medications such as baclofen, bupivacaine, clonidine. If those medications will not helping we can wait until he is weaned out from his transdermal fentanyl and try intrathecal opioids as well. Prialt could be attempted as well on this patient but he says that he cannot afford co-pay on Prialt. Brochure was given about intrathecal pain pump [employer] to read. If he agrees on the pain pump we can start to do trials of nonopioid medications . His psych evaluation was performed in July to August of this year. We have about 7-8 months until it expires. Patient Instructions: I here by testify that I spent 45 minutes in conversation with this patient as well as evaluating records of my colleague Dr. Brown as well as planning his care and organizing this note. Coding Level of Care Code Est Pt Level 5 (50371) Diagnoses Postlaminectomy syndrome of lumbar region M96.1 Postlaminectomy syndrome of lumbosacral region M96.1 Chronic pain syndrome G89.4 Morbid obesity E66.01 Obstructive sleep apnea G47.33
[2023-01-20 09:50] VITALS: BP 128/83; PULSE 110; RESP 18; O2SAT 94; BMI 41.2
== END 2023-01-20 10:23 | disposition home or self-care (01) ==
PROVIDERS: PCP Internal Medicine; Visit Provider Anesthesiology
DX: M96.1 Postlaminectomy syndrome, not elsewhere classified (principal); G89.4 Chronic pain syndrome; E66.01 Morbid (severe) obesity due to excess calories; G47.33 Obstructive sleep apnea (adult) (pediatric)
CPT/HCPCS: 99215

== ENCOUNTER → 2023-01-20 09:33 | Outpatient (BNVA) | payer MEDICARE, SELFPAY | PROVIDERS: PCP Internal Medicine; Visit Provider Anesthesiology | DX: M96.1 Postlaminectomy syndrome, not elsewhere classified (principal); G47.33 Obstructive sleep apnea (adult) (pediatric); G89.4 Chronic pain syndrome; E66.01 Morbid (severe) obesity due to excess calories; Z68.41 Body mass index [BMI] 40.0-44.9, adult | CPT/HCPCS: 99212 ==